=== PATIENT | male | born 1970 | race Caucasian/White ===

== ENCOUNTER 2020-06-08 10:31 | Outpatient (CLI) | payer OTHER, SELFPAY ==
--- NOTE | ~2020-06-08 | XR_ITS ---
XR ribs RT 2V w CXR 2V DATE: 06/08/2020 11:04 INDICATION: Right chest pain. Patient fell 2 days ago, right rib pain TECHNIQUE: PA and lateral views. 4 views of the right ribs. COMPARISON: None FINDINGS: No displaced rib fracture is evident. There is mild infiltrate and/or atelectasis in the right lower lung.. The lungs are otherwise clear. Normal heart size. No pleural effusion or pulmonary vascular congestio n or pneumothorax. There is mild dextro scoliosis of the upper thoracic spine and levoscoliosis of the lower thoracic sp ine. Diffuse osteopenia. IMPRESSION: Mild right lower lung infiltrate and/atelectasis; no displaced rib fracture is evident Reviewed, dictated and finalized at location A.
== END 2020-06-08 10:32 | disposition home or self-care (01) ==
PROVIDERS: PCP Family Medicine; Visit Provider Family Medicine
DX: R07.81 Pleurodynia (principal); W11.XXXA Fall on and from ladder, initial encounter
CPT/HCPCS: 71046; 71100

== ENCOUNTER 2025-05-22 12:58 | Outpatient (RCR) | payer OTHER, SELFPAY ==
--- NOTE | 2025-06-12 08:03 | OPREHPOC ---
Outpatient Therapy Plan of Care This is a Multidisciplinary Plan of Care that may contain components documented by all disciplines (PT, OT, and ST.) PT Problem 1 PT Problem #1 Knowledge Deficit PT Goal 1 Goal / Goal Update independent and compliant with HEP Target Visit 6 PT Problem 2 PT Problem #2 Pain PT Goal 1 Goal / Goal Update decrease pain at worst to 3/10 or less overall Target Visit 12 PT Problem 3 PT Problem #3 Impaired Range of Motion PT Goal 1 Goal / Goal Update improve bilateral cervical side bending to 30 degrees or better improve L cervical rotation to 80 degrees Target Visit 12 PT Problem 4 PT Problem #4 Impaired Strength PT Goal 1 Goal / Goal Update improve L hip flex to 4+/5 or better improve bilateral hip abd to 4/5 or better improve L cancer registry manager strength to 50lbs or better improve L wrist ext to 5/5 improve L shoulder abd, flex, and ER to 4+/5 or better Target Visit 12 PT Problem 5 PT Problem #5 Impaired Functional Mobility PT Goal 1 Goal / Goal Update quick dash to display 20% or less functional deficits LEFS to display 20% or less functional deficits patient to displays appropriate UE/LE strength and cervical rom 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 Target Visit 12
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
--- NOTE | 2025-06-14 15:18 | OPREHPOC ---
Outpatient Therapy Plan of Care This is a Multidisciplinary Plan of Care that may contain components documented by all disciplines (PT, OT, and ST.) PT Problem 1 PT Problem #1 Knowledge Deficit PT Goal 1 Goal / Goal Update independent and compliant with HEP Target Visit 6 Progress Met PT Problem 2 PT Problem #2 Pain PT Goal 1 Goal / Goal Update decrease pain at worst to 3/10 or less overall Target Visit 12 Progress Not Met PT Problem 3 PT Problem #3 Impaired Range of Motion PT Goal 1 Goal / Goal Update improve bilateral cervical side bending to 30 degrees or better. met for R side improve L cervical rotation to 80 degrees Target Visit 12 Progress Partially Met PT Problem 4 PT Problem #4 Impaired Strength PT Goal 1 Goal / Goal Update improve L hip flex to 4+/5 or better improve bilateral hip abd to 4/5 or better improve L apartment groundskeeper strength to 50lbs or better improve L wrist ext to 5/5 improve L shoulder abd, flex, and ER to 4+/5 or better Target Visit 12 Progress Not Met PT Problem 5 PT Problem #5 Impaired Functional Mobility PT Goal 1 Goal / Goal Update quick dash to display 20% or less functional deficits LEFS to display 20% or less functional deficits patient to displays appropriate UE/LE strength and 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 Target Visit 12 Progress Not Met
--- NOTE | 2025-06-14 15:18 | PTOPPROGNS ---
Assessment and note entered by JT File, PT Evaluation Information Assessment Status Progress ICD-10 Condition Codes (PT) Radiculopathy, cervical M54.13,Pain in left hip M25.552 Onset 04/27/2025 Subjective Information patient reports he saw the neurologist yesterday who is ordering an MRI of the L shoulder and wrist . he reports he still feels tight and has issues with the use of his L UE. Assessment PT Clinical Summary mr. mario presents to skilled PT for his 10th skilled therapy visit today. he presents with continued deficits and pain in the neck and L UE. he has been educated in exercises for both the upper and lower chain, but given patients recent responses, focus has shifted towards the neck and UE's. he displays some improved cervical rom noting improvement in R side bending past its goal level, but continued tightness throughout. continued skilled PT is indicated to achieve his goals to return to prior level work performance. Plan of Care Interventions Electrical Stimulation,Gait Training,Hot Pack/Cold Pack,Manual Therapy,Neuro Re-education,Patient/ Caregiver Education,Therapeutic Activities, Therapeutic Exercise PT Services Indicated Yes Treatment Frequency and Continue per initial POC Duration These treatments will address the objective and functional deficits as defined above. The patient will be advanced safely and appropriately in order for the patient to progress towards his/her prior level of function. Additional exercises will be introduced and as well as a comprehensive home exercise program upon discharge, if needed, ?to ensure carryover of functional gains achieved in the clinic. This treatment plan has been reviewed and agreement upon by the patient.
--- NOTE | 2025-06-20 09:13 | OPREHPOC ---
Outpatient Therapy Plan of Care This is a Multidisciplinary Plan of Care that may contain components documented by all disciplines (PT, OT, and ST.) PT Problem 1 PT Problem #1 Knowledge Deficit PT Goal 1 Goal / Goal Update independent and compliant with HEP Target Visit 6 Progress Met PT Problem 2 PT Problem #2 Pain PT Goal 1 Goal / Goal Update decrease pain at worst to 3/10 or less overall. met for neck and groin, but not for shoulder Target Visit 24 Progress Not Met PT Problem 3 PT Problem #3 Impaired Range of Motion PT Goal 1 Goal / Goal Update improve bilateral cervical side bending to 30 degrees or better. met improve L cervical rotation to 80 degrees. not met improve L shoulder flexion to 155 degrees or better with equal speed as the R and no pain Target Visit 24 Progress Partially Met PT Problem 4 PT Problem #4 Impaired Strength PT Goal 1 Goal / Goal Update improve L hip flex to 4+/5 or better. hold improve bilateral hip abd to 4/5 or better. hold improve L woven blind loom tender strength to 50lbs or better. met improve L wrist ext to 5/5. not met improve L shoulder abd, flex, and ER to 4+/5 or better. not met Target Visit 24 Progress Not Met PT Goal 2 Goal / Goal Update improve bilateral woven blind loom tender strength to 80lbs or better improve L finger extension to 4+/5 or better Target Visit 24 PT Problem 5 PT Problem #5 Impaired Functional Mobility PT Goal 1 Goal / Goal Update quick dash to display 20% or less functional deficits. not met LEFS to display 20% or less functional deficits. 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 not met patient to display functional L UE reach behind head to the shirt collar and behind back to the midline lumbar spine patient to lift 40lbs from floor to waist safely patient to lift 10lbs overhead with the L UE without pain and with safe mechanics Target Visit 24 Progress Not Met
--- NOTE | 2025-06-20 09:13 | PTOPREEVAL ---
Assessment and note entered by JT File, PT Evaluation Information Assessment Status Re-evaluation ICD-10 Condition Codes (PT) Radiculopathy, cervical M54.13,Pain in left hip M25.552 Onset 04/27/2025 Subjective Information patient reports he is scheduled for MRI of the R hip/pelvis and the L forearm this weekend. he reports the L groin area feels better lately. he reports the neck and upper back are also better, and he is most limited with the L shoulder. he reports he has pain, but struggles most with weakness in the L shoulder. he reports if his L arm is extended, he is unable to grab or lift weight at all. he reports he believes he could do this if the arm was close to his body. Reported Pain Level Pain Score 1,0,2,1: Self Report Assessment PT Clinical Summary mr. mario presents to skilled PT for his 12th skilled PT visit today. he displays improved cervical rom, less cervical pain, and less groin pain. however, he continues to have shoulder pain, weakness, and L UE weakness. he is not yet able to return to his full job requirements, and would benefit from continued skilled PT to improve his objective/functional deficits to achieve this goal . his goals and progress towards goals have been updated below to reflect progress and areas still needing attention. Plan of Care Interventions Electrical Stimulation,Gait Training,Hot Pack/Cold Pack,Manual Therapy,Neuro Re-education,Patient/ Caregiver Education,Therapeutic Activities, Therapeutic Exercise PT Services Indicated Yes Treatment Frequency and continue skilled PT 3x weekly for 12 more visits Duration These treatments will address the objective and functional deficits as defined above. The patient will be advanced safely and appropriately in order for the patient to progress towards his/her prior level of function. Additional exercises will be introduced and as well as a comprehensive home exercise program upon discharge, if needed, ?to ensure carryover of functional gains achieved in the clinic. This treatment plan has been reviewed and agreement upon by the patient.
== END 2025-08-20 23:59 | disposition home or self-care (01) ==
LOC: CHSPT 12:58
PROVIDERS: Visit Provider Orthopaedic Surgery Sports Medicine
DX: M25.512 Pain in left shoulder (principal); M54.13 Radiculopathy, cervicothoracic region; M25.552 Pain in left hip
CPT/HCPCS: 97014; 97110; 97140; 97161; 97530; G0283